=== PATIENT | male | born 1995 | race Caucasian/White ===

== ENCOUNTER → 2019-04-10 | Outpatient (CLI) | payer SELFPAY ==
--- NOTE | 2019-04-10 16:03 | RADIOLOGY IMAGING REPORT ---
FAC[facility] PATIENT NAME: Lane Rivera : 1995 MR: [id number] V: [id number] EXAM DATE: ORDERING PHYSICIAN: STANTON JACKSON TECHNOLOGIST: Location: [facility] Patient: Lane Rivera : 1995 Visit/Account:[id number] Date of Sevice: 04/10/2019 US VENOUS LOWER EXT RT HISTORY: Palpable cords ADDITIONAL HISTORY: None. COMPARISON: None. FINDINGS: Grayscale, duplex and color Doppler interrogation of the right lower extremity deep veins from common femoral vein to proximal calf was completed. Common femoral vein: Negative. Femoral vein: Negative. Deep femoral vein: Negative. Popliteal vein: Negative. Visualized deep calf veins: Negative. Popliteal fossa: Negative. Greater saphenous vein in the proximal thigh: Negative. There is superficial venous thrombosis present within the posterior calf corresponding to the palpabl e cords. IMPRESSION: Negative for deep venous thrombosis within the right lower extremity. There is superficial venous thrombosis present within the posterior calf corresponding to the palpabl e cords. Report Dictated By: Valentin Beck at 04/10/2019 3:52 PM Report E-Signed By: Valentin Beck at 04/10/2019 3:58 PM WSN:[id number]
== END ==
LOC: US 14:59
PROVIDERS: ATTEND Nurse Practitioner Family
DX: I82.890 Acute embolism and thrombosis of other specified veins (principal)

== ENCOUNTER → 2019-04-10 | Outpatient (REF) | payer SELFPAY ==
[2019-04-10 15:07] LABS: PLATELET COUNT, AUTOMATED 285 K/uL (150-450)
== END ==
PROVIDERS: ATTEND Nurse Practitioner Family
DX: I82.409 Acute embolism and thrombosis of unspecified deep veins of unspecified lower extremity (principal)
CPT/HCPCS: 82040; 82247; 82310; 82374; 82435; 82565; 82947; 84075; 84132; 84155; 84295; 84450; 84460; 84484; 84520; 85025; 85379